=== PATIENT | male | born 1980 | race American Indian/Alaskan Native ===

== ENCOUNTER 2020-07-29 00:56 | Emergency (ER) | payer SELFPAY | END 2020-07-29 04:00 | disposition left against medical advice (07) | LOC: ED 00:56 | DX: R51.9 Headache, unspecified (principal); Z53.21 Procedure and treatment not carried out due to patient leaving prior to being seen by health care provider ==

== ENCOUNTER 2020-08-11 22:22 | Emergency (ER) | payer SELFPAY | END 2020-08-12 01:00 | disposition left against medical advice (07) | LOC: ED 22:22 | DX: R06.00 Dyspnea, unspecified (principal); Z53.21 Procedure and treatment not carried out due to patient leaving prior to being seen by health care provider ==